=== PATIENT | male | born 1960 | race Caucasian/White ===

== ENCOUNTER 2022-02-20 13:41 | Outpatient (CLI) | payer MEDICARE, SELFPAY ==
--- NOTE | ~2022-02-20 | CT_ITS ---
EXAMINATION:CT lung screening DATE: 02/20/2022 14:00 INDICATION: Tobacco use. Current smoker with 45 pack year history. TECHNIQUE: Computed tomography (CT) of the chest was performed without intravenous contrast. Automate d exposure control and iterative reconstruction technique were employed. The dose-length product (DLP ) was 207.29 mGy-cm. COMPARISON: None. FINDINGS: There is mild emphysema. There is mild scarring in paraspinal right lower lobe. There are a few scattered nodules in the lungs measuring up to 4 mm in left lower lobe. There is mild atelectasi s in the lower lobes. There is mild mucous plugging in the lower lobe bronchi. No pleural effusion. T he heart size is normal. There are coronary artery calcifications. No pericardial effusion. There is mild thoracic spondylosis. There is mild chronic anterior wedging of multiple vertebral bodies. IMPRESSION: 1. Lung-RADS category 2: Benign appearance or behavior. Continue annual screening with noncontrast lo w-dose chest CT in 12 months. Reviewed, dictated and finalized at location A. IMPRESSION: 1. Lung-RADS category 2: Benign appearance or behavior. Continue annual screeni ng with noncontrast low-dose chest CT in 12 months.
== END 2022-02-20 13:42 | disposition home or self-care (01) ==
LOC: ANHIMG 13:42
PROVIDERS: PCP Internal Medicine; Visit Provider Internal Medicine
DX: F17.210 Nicotine dependence, cigarettes, uncomplicated (principal)
CPT/HCPCS: 71271